=== PATIENT | female | born 1945 | race Caucasian/White ===

== ENCOUNTER 2017-05-21 05:50 | Day surgery (SDC) | payer MEDICARE, OTHER ==
[~2017-05-21] VITALS: Ht 154.9 cm; Wt 56.2 kg
[~2017-05-21 05:50] MED LIST: NEURONTIN300 MG PO; OXYCODONE-ACET1 EAC1 PO; PERCOCET 5-3251 EACH PO; PLAVIX75 MG PO; PRAVACHOL80 MG PO; PYRIDIUM200 MG PO
[2017-05-21] MEDS ORDERED: VITAMIN B-12100 MCG PO (06:12)
[2017-05-21] MEDS ORDERED: VITAMIN B-650 MG PO (06:12)
[2017-05-21] MEDS ORDERED: FOLIC ACID0.8 MG PO (06:13)
[2017-05-21] MEDS ORDERED: VITAMIN D1000 UNI1 PO (06:13)
--- NOTE | 2017-05-21 09:08 | NUR ---
05/21/17 0908 Sonam Giang 0855 RESP EVEN AND UNLABORED. PT ASLEEP, SLIGHT REACTION. 0905 PT OPEN HER EYES, REORIENTED TO PACU.
--- NOTE | 2017-05-21 09:44 | NUR ---
PT RETURNED FROM PACU. AWAKE AND ORIENTED. PT DENIES PAIN AND NAUSEA. WATER AND CRACKERS PROVIDED FOR PT. BED RAILS UP. CALL LIGHT WITHIN REACH.
--- NOTE | 2017-05-21 09:55 | NUR ---
PTS DAUGHTER CALLED AND TOLD PT IS BACK IN HER ROOM AND READY FOR VISITIORS. PTS DAUGHTER STATES SHE WILL BE COMING SOON.
--- NOTE | 2017-05-21 10:09 | NUR ---
THIS RN WENT TO CHECK ON PT. PT VISITING WITH DOCTOR. PT REQUESTS TO GET UP TO REST ROOM. PT STEADY ON FEET WITH ONE PERSON STAND BY ASSIST. PT ABLE TO VOID WITHOUT DIFFICULTY, 350ML CLEAR PINK URINE. PT EATING CRACKERS NO REQUESTS OR COMPLAINTS AT THIS TIME. BED RAILS UP, CALL LIGHT WITHIN REACH.
--- NOTE | 2017-05-21 10:41 | NUR ---
PT STEADY ON FEET WITH ONE PERSON STAND BY ASSIST. PT TOLERATING PO FLUID AND FOOD. PT CONTINUES TO DENY NAUSEA AND RATES DISCOMFORT AT 1/10 WHICH IS TOLERABLE AND "JUST NAGGING." PT DRESSES SELF. DISCHARGE INSTRUCTIONS REVIEWED WITH PT AND DAUGHTER, PT AND DAUGHTER VERBALIZE UNDERSTANDING OF DISCHARGE INSTRUCTIONS.
--- NOTE | 2017-05-22 19:21 | OR ---
[address] [address] Signed DATE OF OPERATION: 05/21/2017 SURGEON: Veronica Calabrese MD PREOPERATIVE DIAGNOSES: 1. Intermittent left-sided flank pain. 2. Left ureterolithiasis with associated hydronephrosis. 3. Long-standing history of kidney stones. POSTOPERATIVE DIAGNOSES: 1. Intermittent left-sided flank pain. 2. Left ureterolithiasis with associated hydronephrosis. 3. Long-standing history of kidney stones. 4. 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 NAMES OF PROCEDURES: 1. Diagnostic cystoscopy with left retrograde pyelogram. 2. Left nephroureteroscopy with laser lithotripsy and basket extraction of stones. 3. Insertion of a left ureteral stent. SURGEON: Veronica Calabrese MD. ANESTHESIA: General. ESTIMATED BLOOD LOSS: Minimal. COMPLICATIONS: None. SPECIMENS: Ureteral stone fragments sent to the lab for stone analysis. DRAINS: A 6 x 24 cm contour double-J ureteral stent inserted into the left ureter without difficulty. INDICATIONS FOR PROCEDURE: Electronically Signed By: VERONICA CALABRESE MD 05/22/17 1921 PATIENT NAME: WILBERT WORLEY OPERATIVE REPORT DATE OF : 41 PHYSICIAN: VERONICA CALABRESE MD REPORT #: [id number] REPORT IS CONFIDENTIAL AND NOT TO BE RELEASED WITHOUT AUTHORIZATION [address] [address] Signed Ms. Worley is a very pleasant 71-year-old female with a longstanding history of nephrolithiasis. She has undergone multiple ureteroscopies in the past, most notably at the [facility] in [place] and previously with Dr. Chetna Srinivasan. In the past couple of months that I have been seeing her, she has complained of intermittent left-sided flank pain. She underwent a CAT scan earlier this year, which did reveal the presence of 2 left mid ureteral calculi with associated mild hydronephrosis. At the time, the patient was assisting her critically ill , who has since . She recently presented to the emergency department, again with intermittent left-sided flank pain. She underwent a repeat CT scan which revealed the persistent left ureteral calculi; one measuring about 4.5 mm in the left proximal ureter as well as one measuring 3.5 mm just distal to the 1st stone. The patient has agreed to undergo surgical intervention for extraction of her stones. I re-iterated with her the risks and benefits of the procedure and she agreed to proceed. OPERATIVE FINDINGS: 1. On cystoscopy, there was no evidence of any suspicious masses, lesions, or stones within the bladder. Bilateral ureteral orifices are in their normal anatomic location. 2. The left semi-rigid ureteroscopy revealed the presence of a 3.5 mm mid left ureteral calculus. This stone was fragmented using a holmium laser and the fragments were extracted without difficulty. As I moved up the left ureter, I was able to appreciate a fairly long area of ureteral stenosis, located in the left proximal ureter. I would measure this around 1.5 to 2 cm in length. 3. I located the left proximal ureteral stone just proximal to this area of stenosis. The stone was extracted in toto without the need for laser lithotripsy. Left retrograde pyelogram confirmed the presence of a moderately sized area stenosis in the left proximal ureter. Also noted was calyceal blunting on the left side. 4. Left flexible nephroureteroscopy revealed again calyceal blunting in the left kidney. However, no remaining stone fragments were noted. I was able to pass the scope through the area of stenosis; however, I did meet with a moderate amount of resistance doing so. 5. A 6 x 24 cm contour double-J ureteral stent was inserted into the left ureter under direct visualization without difficulty. DESCRIPTION OF PROCEDURE: After informed consent was obtained, the patient taken back to the operating room. She was transferred from [facility] to the operative room table, where general anesthesia was induced. She was placed in the dorsal lithotomy position and genitalia prepped and draped in standard sterile fashion. Using a 30 degree lens on a 22-Armenian introducer, rigid cystoscope was inserted through the urethra and into her bladder under direct visualization. Plain endoscopic views of the bladder were then obtained. Please see the findings. I then inserted a 0.035 Sensor wire into the left ureter and up into the left collecting system. Adequate placement of the wire was confirmed on fluoroscopy. Over Electronically Signed By: VERONICA CALABRESE MD 05/22/171920 PATIENT NAME: WILBERT WORLEY OPERATIVE REPORT DATE OF : 41 PHYSICIAN: VERONICA CALABRESE MD REPORT #: [id number] REPORT IS CONFIDENTIAL AND NOT TO BE RELEASED WITHOUT AUTHORIZATION [facility] [address] [place] [address] [place] [address] Signed the wire, a semi-rigid ureteroscope was passed into the left distal ureter. Once at the level of around the mid ureter, I located the smaller 3.5 mm stone. The stone was fragmented using a holmium laser at 8 Hz and 0.8 joules. The stone fragments were then extracted using a Zero-Tip basket. Since I could go no further with the semi-rigid scope, I chose to switch to the flexible ureteroscope. I inserted an 04/23 ureteral access sheath over an indwelling Sensor wire under fluoroscopic guidance. Via the sheath, I inserted a flexible ureteroscope and made my way up to the proximal portion of the ureter. After entering through the stenotic area, I made it to the proximal portion of the ureter where I located the other larger stone. I was able to extract this stone in toto without any issue using the ureteral scope. I then continued diagnostic nephroscopy on that side and did not appreciate any additional stones. I reinserted a Sensor wire through the ureteral access sheath and removed the sheath, leaving the wire behind in good position. Over the wire, I passed a 6 x 24 cm contour double-J ureteral stent into the left ureter under direct visualization. Once the wire was pulled, I could appreciate an adequate proximal coil within the left renal pelvis along with an adequate distal coil within the bladder. I then extracted all of these stone fragments from the patient's bladder and placed in a specimen cup. The procedure was then terminated. The patient tolerated the procedure well without any complication. She will now be transferred to the postanesthesia care unit in stable condition. DISPOSITION: Ms. Worley will be discharged to home in stable condition today when she awakens from general anesthetic. I discussed the results of today's procedure with her and answered all of her questions. I would like her to keep the stent in at least a month or so to see if we can manage the stenosis of the left proximal ureter conservatively. Once her stent is pulled in about a month, she will undergo an IVP for re-evaluation with drainage of her left collecting system. In the interim, she will go home today with Macrobid for a total of 10 days along with Percocet 5/325, dispense #30 p.r.n. pain. She will be scheduled for her to return to clinic on June 08 with the UA check. MD GILBERT Jc/ALENL /[id number] Electronically Signed By: VERONICA CALABRESE MD 05/22/17 1921 PATIENT NAME: WILBERT WORLEY OPERATIVE REPORT DATE OF : 41 PHYSICIAN: VERONICA CALABRESE MD REPORT #: [id number] REPORT IS CONFIDENTIAL AND NOT TO BE RELEASED WITHOUT AUTHORIZATION [address] [place], [place] [address] Signed Electronically Signed By: VERONICA CALABRESE MD 05/22/17 192 PATIENT NAME: WILBERT WORLEY OPERATIVE REPORT DATE OF : 41 PHYSICIAN: VERONICA CALABRESE MD REPORT #: [id number] REPORT IS CONFIDENTIAL AND NOT TO BE RELEASED WITHOUT AUTHORIZATION
--- NOTE | 2017-05-23 08:04 | EKG ---
[facility] [address] [facility] [place] [address] Signed Normal sinus rhythm Normal ECG No previous ECGs available Confirmed by RYLEY STOVALL MD ([id number]) on 05/23/2017 8:04:43 AM Electronically Signed By: RYLEY STOVALL MD 05/23/17 0804 PATIENT NAME: WILBERT WORLEY Electrocardiogram DATE OF : 41 PHYSICIAN: RYLEY STOVALL MD REPORT #: [id number] REPORT IS CONFIDENTIAL AND NOT TO BE RELEASED WITHOUT AUTHORIZATION
== END 2017-05-21 10:45 | disposition home or self-care (01) ==
LOC: DS 05:50 → OPS 05:50 → DS 06:45 → OPS 06:45
PROVIDERS: Urology
PROC: 0TF78ZZ Fragmentation in Left Ureter, Via Natural or Artificial Opening Endoscopic (ICD-10-PCS; principal; 2017-05-21 06:45)
PROC: 0T778DZ Dilation of Left Ureter with Intraluminal Device, Via Natural or Artificial Opening Endoscopic (ICD-10-PCS; 2017-05-21 06:45)
PROC: BT1FYZZ Fluoroscopy of Left Kidney, Ureter and Bladder using Other Contrast (ICD-10-PCS; 2017-05-21 06:45)
DX: N13.2 Hydronephrosis with renal and ureteral calculous obstruction (principal); N13.1 Hydronephrosis with ureteral stricture, not elsewhere classified; M19.90 Unspecified osteoarthritis, unspecified site; E78.00 Pure hypercholesterolemia, unspecified; Z79.02 Long term (current) use of antithrombotics/antiplatelets; Z86.73 Personal history of transient ischemic attack (TIA), and cerebral infarction without residual deficits; Z79.899 Other long term (current) drug therapy; Z90.49 Acquired absence of other specified parts of digestive tract; Z90.710 Acquired absence of both cervix and uterus; Z96.651 Presence of right artificial knee joint; Z98.41 Cataract extraction status, right eye; Z98.42 Cataract extraction status, left eye; Z98.890 Other specified postprocedural states; Z88.0 Allergy status to penicillin; Z88.2 Allergy status to sulfonamides; Z88.5 Allergy status to narcotic agent; Z88.8 Allergy status to other drugs, medicaments and biological substances
CPT/HCPCS: 00910; 74420; 82365; 93005; 93010; C2617; J0696; J1100; J2250; J2405; J2550; J2704; J2765; J3010; J7120; Q9967